=== PATIENT | female | born 1995 | race Caucasian/White ===

== ENCOUNTER 2019-11-30 10:42 | Emergency (ER) | payer OTHER ==
--- NOTE | 2019-11-30 11:15 | ER ---
Nurse's Notes [facility] Name: Paulette Lubin Age: 24 yrs Sex: Female : 1995 Arrival Date: 11/30/2019 Time: 10:44 Bed 18 Private MD: Diagnosis: Viral infection, unspecified;Candidiasis;Candidiasis, unspecified Presentation: 11/29 10:48 Chief complaint: Patient states: "I have blisters around my mouth and on the roof of my aa5 mouth". Pt also states "I think I have thrush because my tongue is white". 10:48 Coronavirus screen: Proceed with normal triage. Patient denies a cough. Patient denies aa5 shortness of breath or difficulty breathing. Patient denies measured and/or subjective temperature greater than 100.4F prior to today's visit. Patient denies travel on a cruise ship or to a country the [facility] currently lists as an affected area. Patient denies contact with known and/or suspected case of COVID-19. Ebola Screen: Patient negative for fever greater than or equal to 101.5 degrees Fahrenheit, and additional compatible Ebola Virus Disease symptoms. Initial Sepsis Screen: Does the patient meet any 2 criteria? No. Patient's initial sepsis screen is negative. Does the patient have a suspected source of infection? No. Patient's initial sepsis screen is negative. Risk Assessment: Do you want to hurt yourself or someone else? Patient reports no desire to harm self or others. Onset of symptoms was November 2019. 10:48 Acuity: CRISTINE 5 aa5 10:48 Method Of Arrival: Ambulatory aa5 3RD MATE: 10:59 LMP 11/12/2019 aa5 Historical: - Allergies: 10:48 No Known Allergies; aa5 - PMHx: 10:48 None; aa5 - PSHx: 10:48 Tubal ligation; aa5 - Immunization history:: Flu vaccine is not up to date. - Social history:: Smoking status: Patient reports the use of cigarette tobacco products, smokes one-half pack cigarettes per day. Screenin:52 Abuse screen: Denies threats or abuse. Nutritional screening: Inside of mouth is sore rb1 from the blisters. Tuberculosis screening: No symptoms or risk factors identified. Fall Risk None identified. Assessment: 10:52 General: Appears in no apparent distress. Behavior is calm, cooperative, Denies fever. rb1 Pain: Complains of pain in mouth Pain currently is 5 out of 10 on a pain scale. Pain began 2-3 days ago. Neuro: Level of Consciousness is awake, alert, obeys commands, Oriented to person, place, time, situation. Cardiovascular: Capillary refill < 3 seconds is brisk in bilateral fingers. Respiratory: Airway is patent Respiratory effort is even, unlabored, Respiratory pattern is regular, symmetrical. GI: No signs and/or symptoms were reported involving the gastrointestinal system. : No signs and/or symptoms were reported regarding the genitourinary system. EENT: Oral mucosa is moist. blisters noted outside and inside of her mouth, started day before yesterday. Derm: blisters and redness noted on mouth. 11:40 Reassessment: Patient appears in no apparent distress at this time. Patient and/or rb1 family updated on plan of care and expected duration. Pain level reassessed. Patient is alert, oriented x 3, equal unlabored respirations, skin warm/dry/pink. Vital Signs: 10:48 BP 123 / 72; Pulse 87; Resp 16 S; Temp 98.2(TE); Pulse Ox 98% on R/A; Weight 83.91 kg aa5 (R); Height 5 ft. 6 in. (167.64 cm) (R); 11:40 BP 121 / 72; Pulse 83; Resp 16; Pulse Ox 100% on R/A; rb1 10:48 Body Mass Index 29.86 (83.91 kg, 167.64 cm) aa5 ED Course: 10:44 Patient arrived in ED. ag5 10:48 Arm band placed on Patient placed in an exam room, on a stretcher. aa5 10:51 Gino Lange MD is Attending Physician. kdr 10:52 Patient has correct armband on for positive identification. Bed in low position. Call rb1 light in reach. Side rails up X 1. Pulse ox on. NIBP on. 10:58 Triage completed. aa5 11:16 Leola Rouse, RN is Primary Nurse. rb1 11:46 No provider procedures requiring assistance completed. Patient did not have IV access rb1 during this emergency room visit. Administered Medications: 11:24 Drug: TORadol - Ketorolac 15 mg Route: IM; Site: right deltoid; rb1 11:40 Follow up: Response: No adverse reaction rb1 11:26 Drug: Valtrex 1000 mg Route: PO; rb1 11:45 Follow up: Response: No adverse reaction rb1 11:26 Drug: predniSONE 60 mg Route: PO; rb1 11:45 Follow up: Response: No adverse reaction rb1 Outcome: 11:14 Discharge ordered by . kdr 11:46 Patient left the ED. rb1 11:46 Discharged to home ambulatory. rb1 11:46 Condition: stable 11:46 Discharge instructions given to patient, Instructed on discharge instructions, follow up and referral plans. medication usage, Demonstrated understanding of instructions, follow-up care, medications, Prescriptions given X x 5 Signatures: Gino Lange MD MD kdr Elham Pendleton RN RN aa5 Leola Rouse RN RN rb1 Ken Alex ag5
--- NOTE | 2019-11-30 11:15 | EDPHYS ---
Physician Documentation [facility] Name: Paulette Lubin Age: 24 yrs Sex: Female : 1995 Arrival Date: 11/30/2019 Time: 10:44 Bed 18 Private MD: ED Physician Gino Lange HPI: 11/29 11:33 This 24 yrs old Female presents to ER via Ambulatory with complaints of Mouth kdr Problem. 11:33 The patient presents with redness, swelling, a white plaque. The problem is located in kdr the upper jamshid border \T\ lip, also hard palate. Additionally, the buccal surfaces seem to be spared as well as the gums and soft palate. The tongue appears to have candidiasis. Onset: The symptoms/episode began/occurred gradually, yesterday. Duration: The symptoms are continuous, and are steadily getting worse. Modifying factors: The symptoms are alleviated by nothing, the symptoms are aggravated by Movement of touching the area. Associated signs and symptoms: The patient has no apparent associated signs or symptoms. Severity of symptoms: At their worst the symptoms were mild, in the emergency department the symptoms are unchanged. The patient has experienced a previous episode, approximately 2 years ago, The problem then resolved with time and Valtrex. The patient has not recently seen a physician. FISHER NET: 10:59 LMP 11/12/2019 aa5 Historical: - Allergies: 10:48 No Known Allergies; aa5 - PMHx: 10:48 None; aa5 - PSHx: 10:48 Tubal ligation; aa5 - Immunization history:: Flu vaccine is not up to date. - Social history:: Smoking status: Patient reports the use of cigarette tobacco products, smokes one-half pack cigarettes per day. ROS: 11:33 Constitutional: Negative for fever, chills, and weight loss, Eyes: Negative for injury, kdr pain, redness, and discharge, Neck: Negative for injury, pain, and swelling, Cardiovascular: Negative for chest pain, palpitations, and edema. 11:33 ENT: Positive for As noted above, she has upper lip, hard palate and tongue involvement. Exam: 11:33 Constitutional: This is a well developed, well nourished patient who is awake, alert, kdr and in no acute distress. Head/Face: Normocephalic, atraumatic. Neck: Trachea midline, no thyromegaly or masses palpated, and no cervical lymphadenopathy. Supple, full range of motion without nuchal rigidity, or vertebral point tenderness. No Meningismus. 11:33 ENT: Mouth: Lips: Upper lip swelling and hard palate blisters and thrush. Thrush on tongue as well. Vital Signs: 10:48 BP 123 / 72; Pulse 87; Resp 16 S; Temp 98.2(TE); Pulse Ox 98% on R/A; Weight 83.91 kg aa5 (R); Height 5 ft. 6 in. (167.64 cm) (R); 11:40 BP 121 / 72; Pulse 83; Resp 16; Pulse Ox 100% on R/A; rb1 10:48 Body Mass Index 29.86 (83.91 kg, 167.64 cm) aa5 MDM: 11:14 Patient medically screened. kdr 11:33 Data reviewed: vital signs, nurses notes. Counseling: I had a detailed discussion with kdr the patient and/or guardian regarding: the historical points, exam findings, and any diagnostic results supporting the discharge/admit diagnosis, the need for outpatient follow up. Administered Medications: 11:24 Drug: TORadol - Ketorolac 15 mg Route: IM; Site: right deltoid; rb1 11:40 Follow up: Response: No adverse reaction rb1 11:26 Drug: Valtrex 1000 mg Route: PO; rb1 11:45 Follow up: Response: No adverse reaction rb1 11:26 Drug: predniSONE 60 mg Route: PO; rb1 11:45 Follow up: Response: No adverse reaction rb1 Disposition: 11/30/19 11:14 Discharged to Home. Impression: Viral infection, unspecified, Candidiasis, Candidiasis, unspecified. - Condition is Stable. - Discharge Instructions: Thrush, Adult, [id number], Skin Yeast Infection. - Prescriptions for Nystatin 100,000 unit/mL Oral Suspension - take 5 milliliters by ORAL route every 6 hours Swish and spit; 120 milliliter. Valtrex 1 g Oral Tablet - take 1 tablet by ORAL route every 8 hours for 7 days; 21 tablet. Tramadol 50 mg Oral Tablet - take 1 tablet by ORAL route every 8 hours as needed; 16 tablet. Pepcid 20 mg Oral Tablet - take 1 tablet by ORAL route every 12 hours for 5 days; 10 tablet. Medrol (Bran) 4 mg Oral Tablets, Dose Pack - take 1 tablet by ORAL route as directed - follow package instructions; 1 packet. - Medication Reconciliation Form, Thank You Letter, Antibiotic Education form. - Follow up: Private Physician; When: 2 - 3 days; Reason: If symptoms return, Further diagnostic work-up, Recheck today's complaints, Continuance of care, Re-evaluation by your physician. - Problem is new. - Symptoms have improved. Signatures: Gino Lange MD MD kdr Elham Pendleton RN RN aa5 Leola Rouse, RN RN rb1 Corrections: (The following items were deleted from the chart) 11:46 11:14 11/30/2019 11:14 Discharged to Home. Impression: Viral infection, unspecified; rb1 Candidiasis; Candidiasis, unspecified. Condition is Stable. Forms are Medication Reconciliation Form, Thank You Letter, Antibiotic Education, Prescription Opioid Use. Follow up: Private Physician; When: 2 - 3 days; Reason: If symptoms return, Further diagnostic work-up, Recheck today's complaints, Continuance of care, Re-evaluation by your physician. Problem is new. Symptoms have improved. kdr
[2019-11-30] MEDS ORDERED: predniSONE 20 MG TAB ONE (11:24)
[2019-11-30] MEDS ORDERED: KETOROLAC 30 MG/ML INJ ONE (11:24)
[2019-11-30] MEDS ORDERED: VALACYCLOVIR 500 MG TAB ONE (11:24)
[2019-11-30 11:53] VITALS: BP 123/72; TEMP 98.2; O2SAT 98
== END 2019-11-30 11:46 | disposition home or self-care (01) ==
LOC: ER 10:42
DX: B34.9 Viral infection, unspecified (principal); F17.210 Nicotine dependence, cigarettes, uncomplicated
CPT/HCPCS: 96372; 99283; J7512